=== PATIENT | female | born 1995 | race American Indian/Alaskan Native ===

== ENCOUNTER 2021-06-16 02:34 | Inpatient (IN) | payer OTHER ==
[2021-06-16] MEDS ORDERED: BUTORPHANOL 2 MG/1 ML INJ IV PRN (05:35)
[2021-06-16] MEDS ORDERED: miSOPROStol 200 MCG TAB PR PRN (05:35)
[2021-06-16] MEDS ORDERED: METHYLERGONOVINE MALEATE 0.2 MG/ML VIAL IM PRN (05:35)
[2021-06-16] MEDS ORDERED: NALOXONE 0.4 MG/1 ML INJ IV PRN (05:35)
[2021-06-16] MEDS ORDERED: ACETAMINOPHEN 325 MG TAB PO PRN ×2 (05:35→12:57)
[2021-06-16] MEDS ORDERED: OXYTOCIN 10 UNIT/1 ML INJ IM PRN (05:35)
[2021-06-16] MEDS ORDERED: CARBOPROST TROMETHAMINE 250 MCG/1 ML INJ IM PRN (05:35)
[2021-06-16] MEDS ORDERED: LOPERAMIDE 2 MG CAP PO PRN (05:35)
[2021-06-16] MEDS ORDERED: LIDOCAINE (2%) 20 MG/1 ML VIAL 20 ML MDV INFILTRATI ONE ×2 (05:35→11:34)
[2021-06-16] MEDS ORDERED: ePHEDrine SULFATE 50 MG/1 ML INJ IV PRN ×2 (05:35→09:00)
[2021-06-16] MEDS ORDERED: TERBUTALINE 1 MG/1 ML INJ SUB-Q PRN (05:35)
[2021-06-16] MEDS ORDERED: ONDANSETRON 4 MG/2 ML INJ IV PRN ×2 (05:35→12:57)
[2021-06-16] MEDS ORDERED: MINERAL OIL 30 ML ORAL LIQD PO PRN (05:35)
--- NOTE | 2021-06-16 05:35 | History and Physical Report ---
History of Present Illness Date of examination: 06/16/21 Date of admission: 06/16/2021 Chief complaint: "I had a gush around 5:30pm then I had a trickle down my leg this morning" History of present illness: EDC Confirmation: 06/19/2021 Past History : 1 Term Births: 0 Premature Births: 0 Living Children: 0 Para: 0 Mult. Births: 0 Prev : 0 Aborta: 0 Elect. Ab: 0 Spont. 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 Past Medical History: Negative Past Medical History Past Surgical History: Negative Past Surgical History Past Medical History Anesthesia Complications: negative Anemia: negative Autoimmune Disorder: negative Bleeding Disorder: negative Blood Transfusions: negative Breast Disease: negative Diabetes: negative Heart Disease: negative Hypertension: negative Hepatitis/Liver Disease: negative Kidney Disease/UTI: negative Neurologic/Epilepsy/Migraines: negative Phlebitis/Varicosities: negative Psychiatric: negative Pulmonary Disease/Asthma: negative Thyroid Disease: negative Hospitalizations: negative Surgery (Non-administrative judge): Negative Past Surgical History Abnormal PAP: negative BRENDON Exposure: negative Infertility: negative Uterine Anomaly: negative Uterine Surgery (not C/S): negative Other Gynecologic Problems: negative Social Hx: Smoking History: Patient has never smoked. Infection History Hx of STD: none HIV Risk Eval: no Hepatitis B Risk Eval: low risk Personal hx. of genital herpes: no Partner hx. of genital herpes: no Rash, Viral, or Febrile illness since last LMP? no Varicella/Chicken Pox Status: Unknown TB Risk: no Genetic History Congenital Heart Defect: Mom: no Dad: no Pavel Disease: Mom: no Dad: no Thalassemia Mom: no Dad: no Neural Tube Defect Mom: no Dad: no Down's Syndrome Mom: no Dad: no Gal-Sachs Mom: no Dad: no Sickle Cell Disease/Trait Mom: no Dad: no Hemophilia Mom: no Dad: no Muscular Dystrophy Mom: no Dad: no Cystic Fibrosis Mom: no Dad: no [place] Chorea Mom: no Dad: no Mental Retardation Mom: no Dad: no Fragile X Mom: no Dad: no Other Genetic/Chromosomal Disorder Mom: no Dad: no Child w/other defect Mom: no Dad: no Enviromental Exposures Enviromental Exposures Reviewed Xray Exposure: no Medication, drug, or alcohol use since LMP: no Chemical/Other Exposure: no Exposure to Cat Liter: no Hx of Parvovirus (Fifth Disease): no Occupational Exposure to Children: none Current Allergies: No known allergies Current Medications (including medications started today): * VITAMINS Past History Past Medical History: other (see HPI) Past Surgical History: other (see HPI) 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) Family/Genetic History: other (see HPI) Social history: other (see HPI) - Obstetrical History Expected Date of Delivery: 06/19/21 Actual Gestation: 39 Week(s) 4 Day(s) : 1 Para: 0 Hx # Term Pregnancies: 0 Number of Pregnancies: 0 Spontaneous Abortions: 0 Induced : 0 Number of Living Children: 0 Medications and Allergies Allergies Allergy/AdvReac Type Severity Reaction Status Date / Time No Known Allergies Allergy Verified 06/16/21 05:52 Home Medications Medication Instructions Recorded Confirmed Last Taken Type Vitamin 1 tab PO QDAY 06/16/21 06/16/21 06/15/21 History Review of Systems All systems: negative Genitourinary: leakage of fluid, contractions - Vital Signs Vital signs: Vital Signs Pulse BP 113 H 97/67 06/16/21 02:59 06/16/21 02:59 Temp Pulse Resp BP Pulse Ox 99 F 113 H 17 97/67 100 06/16/21 05:28 06/16/21 02:59 06/16/21 05:28 06/16/21 03:03 06/16/21 05:28 - Physical Exam Breasts: Positive: deferred Cardiovascular: Regular rate Lungs: Positive: Normal air movement Abdomen: Positive: normal appearance, soft. Negative: distention, tenderness, guarding Genitourinary (Female): Positive: normal external genitalia, normal perenium Vulva: both: normal Vagina: Positive: normal moisture Uterus: Positive: normal size, normal contour Anus/Rectum: Positive: normal perianal skin Extremities: Positive: normal - Obstetrical FHR: auscultation normal, category 1 Uterine Contraction Monitor Mode: Palpation Uterine Contraction Pattern: Irregular Uterine Tone Measurement Phase: Contraction Uterine Contraction Intensity: Moderate Results Abnormal lab results 06/16/21 Range/Units 04:00 Membranes Rupture Positive A (Negative) All other labs normal. 05/20/21:Tests: (1) Ct, Ng, Trich vag by ARLENE ([id number]) Order Note: Clinical Information: SRC:VR SRC:UR Chlamydia by ARLENE Negative Negative *1 Gonococcus by ARLENE Negative Negative *2 Trich vag by ARLENE Negative Negative *3 Tests: (2) Strep Gp B ARLENE ([id number]) ! Strep Gp B ARLENE Negative Negative *4 02/04/2021:Tests: (1) Profile I ([id number]) Order Note: Clinical Information: SRC:UR HBsAg Screen Negative Negative *1 RPR Non Reactive Non Reactive *2 Rubella Antibodies, IgG 1.38 index Immune >0.99 *3 Non-immune <0.90 Equivocal 0.90 - 0.99 Immune >0.99 ABO Grouping O *4 Rh Factor Positive *5 Please note: Prior records for this patient's ABO / Rh type are not available for additional verification. Antibody Screen Negative Negative *6 WBC 7.2 x10E3/uL 3.4-10.8 *7 RBC [L] 3.11 x10E6/uL 3.77-5.28 *8 Hemoglobin [L] 9.2 g/dL 11.1-15.9 *9 Hematocrit [L] 28.8 % 34.0-46.6 *10 MCV 93 fL 79-97 *11 MCH 29.6 pg 26.6-33.0 *12 MCHC 31.9 g/dL 31.5-35.7 *13 RDW 13.3 % 11.7-15.4 *14 Platelets 228 x10E3/uL 150-450 *15 Neutrophils 75 % Not Estab. *16 Lymphs 14 % Not Estab. *17 Monocytes 8 % Not Estab. *18 Eos 3 % Not Estab. *19 Basos 0 % Not Estab. *20 ! Immature Cells <No Reported Value> *21 Neutrophils (Absolute) 5.3 x10E3/uL 1.4-7.0 *22 Lymphs (Absolute) 1.0 x10E3/uL 0.7-3.1 *23 Monocytes(Absolute) 0.6 x10E3/uL 0.1-0.9 *24 Eos (Absolute) 0.2 x10E3/uL 0.0-0.4 *25 Baso (Absolute) 0.0 x10E3/uL 0.0-0.2 *26 ! Immature Granulocytes 0 % Not Estab. *27 ! Immature Grans (Abs) 0.0 x10E3/uL 0.0-0.1 *28 ! NRBC <No Reported Value> *29 Hematology Comments: <No Reported Value> *30 Tests: (2) HB Solu + Rflx Frac ([id number]) Hemoglobin (Hgb) Solubility [A] Positive Negative *31 Verified by repeat analysis Tests: (3) Hgb Fractionation Runnels ([id number]) ! Hgb F 0.0 % 0.0-2.0 *32 ! Hgb A [L] 54.2 % 96.4-98.8 *33 ! Hgb A2 2.6 % 1.8-3.2 *34 ! Hgb S [H] 43.2 % 0.0 *35 ! Interpretation: JAVY *36 Reflex to Hgb Solubility indicated for confirmation. Tests: (4) Hgb Solubility ([id number]) ! Hgb Solubility DUPPRG (X) *37 Duplicate procedure ordered. ! Final Interpretation: SBAS *38 Hemoglobin pattern and concentrations are consistent with sickle cell trait (heterozygous). Suggest clinical and hematologic correlation. Sickle Trait Interpretation Ranges Hgb A 50.0 - 70.0% Hgb S 30.0 - 45.0% Hgb A2 1.8 - 4.0% Tests: (5) HIV Ag/Ab with Reflex ([id number]) HIV Screen 4th Generation wRfx Non Reactive Non Reactive *39 Tests: (6) Varicella-Zoster V Ab, IgG ([id number]) ! Varicella Zoster IgG 194 index Immune >165 *40 Negative <135 Equivocal 135 - 165 Positive >165 A positive result generally indicates exposure to the pathogen or administration of specific immunoglobulins, but it is not indication of active infection or stage of disease. Tests: (7) HCV Antibody reflex to ARLENE ([id number]) ! HCV Ab <0.1 s/co ratio 0.0-0.9 *41 Tests: (8) Interpretation: ([id number]) ! Interpretation: SPRCS *42 Negative Not infected with HCV, unless recent infection is suspected or other evidence exists to indicate HCV infection. Tests: (9) Urine Culture, Routine ([id number]) Urine Culture, Routine Final report *43 Tests: (10) Result ([id number]) ! Result 1 MUG *44 Mixed urogenital henok 10,000-25,000 colony forming units per mL Assessment and Plan @39w4d ESTEFANY presents to triage with c/o water breaking around 5:30pm on 06/15/2021. POC d/w pt for admission and Pitocin augmentation. Pt verbalizes understanding and agrees to treatment plan. SVE /1 and Meconium present per Ashley permanent waver. GBS negative; Orders placed in EMR. Augment with Pitocin per protocol. Anticipate - Patient Problems (1) 39 weeks gestation of Current Visit: Yes Status: Acute (2) Rupture of membranes with meconium present Current Visit: Yes Status: Acute Plan to address problem: continuous monitoring notify provider with any changes in status limited vaginal exams
[2021-06-16] MEDS ORDERED: LACTATED RINGERS 1,000 ML IV SCH (05:45)
[2021-06-16] MEDS ORDERED: OXYTOCIN DRIP 30 UNITS/500 ML BAG IV SCH ×3 (06:00→13:00)
[2021-06-16 06:21] LABS: Hematocrit 27.1 % (30.3-42.9); Hemoglobin 9.1 gm/dl (10.1-14.3); Mean Corpuscular HGB Conc 34 % (30-34); Mean Corpuscular Volume 80 fl (79-97); Platelet Count 288 K/mm3 (140-440); Red Blood Count 3.38 M/mm3 (3.65-5.03); Red Cell Distribution Width 14.4 % (13.2-15.2)
--- NOTE | 2021-06-16 08:05 | Progress Note ---
Assessment and Plan A: 26 y.o. @ 39.4 wks, SROM this AM for mec fluid. Cervical exam: 1.5/50/-1. P: Pt to receive IV fluid bolus for epidural placement. Pitocin to be increased per protocol. Anticipate . Subjective - Subjective Date of service: 06/16/21 Principal diagnosis: IUP @ 39.4 wks, SROM for mec stained fluid. Patient reports: movement normal, contractions Objective - Vital Signs Vital Signs: Vital Signs - 12hr 06/16/21 06/16/21 06/16/21 02:59 03:03 05:28 Temperature 99.5 F 99 F Pulse Rate 113 H Respiratory 16 17 Rate Blood Pressure 97/67 Blood Pressure 97/67 [Right] O2 Sat by Pulse 100 Oximetry [ Bilateral Throughout] 06/16/21 06/16/21 06/16/21 06:22 07:19 07:20 Temperature 97.5 F L Pulse Rate 80 Respiratory 16 16 Rate Blood Pressure 83/52 Blood Pressure 83/52 [Right] O2 Sat by Pulse 100 Oximetry [ Bilateral Throughout] 06/16/21 08:02 Temperature Pulse Rate 88 Respiratory Rate Blood Pressure 82/44 Blood Pressure [Right] O2 Sat by Pulse Oximetry [ Bilateral Throughout] - Exam Breasts: deferred Cardiovascular: Regular rate Lungs: Normal air movement Abdomen: Present: normal appearance, soft Vulva: both: normal FHR: category 1 Uterine Contraction Monitor Mode: External Cervical Dilatation: 1.5 Cervical Effacement Percentage: 50 station: -1 Uterine Contraction Pattern: Regular Uterine Tone Measurement Phase: Resting Uterine Contraction Intensity: Moderate - Labs Labs: Abnormal Labs 06/16/21 06/16/21 04:00 05:06 RBC 3.38 L Hgb 9.1 L Hct 27.1 L MCH 27 L Membranes Rupture Positive A Laboratory Results - last 24 hr 06/16/21 06/16/21 06/16/21 04:00 05:06 05:06 WBC 8.6 RBC 3.38 L Hgb 9.1 L Hct 27.1 L MCV 80 MCH 27 L MCHC 34 RDW 14.4 Plt Count 288 Membranes Rupture Positive A Syphilis IgG Antibody Nonreactive Blood Type Antibody Screen 06/16/21 05:06 WBC RBC Hgb Hct MCV MCH MCHC RDW Plt Count Membranes Rupture Syphilis IgG Antibody Blood Type O POSITIVE Antibody Screen Negative
[2021-06-16] MEDS ORDERED: fentaNYL-BUPIV 2 MCG/ML-0.125% 200 MCG/100 ML BAG EPIDURAL SCH (09:00)
[2021-06-16] MEDS ORDERED: NALOXONE 2 MG/2 ML INJ IV PRN (09:00)
--- NOTE | 2021-06-16 12:01 | Progress Note ---
Assessment and Plan - Patient Problems (1) 39 weeks gestation of Current Visit: Yes Status: Acute (2) Rupture of membranes with meconium present Current Visit: Yes Status: Acute Plan to address problem: -complete/ complete/2+ after epidural placement. -MW notified and at the bedside -anticipate -NICU at the bedside due to the mec l-light mec staining noted on bedding. Subjective - Subjective Date of service: 06/16/21 (late entry. Pt seen at 1130) Principal diagnosis: IUP @ 39.4 wks, SROM for mec stained fluid. Interval history: Pt comfortable with epidural in place Patient reports: movement normal, contractions, no new complaints Objective - Vital Signs Vital Signs: Vital Signs - 12hr 06/16/21 06/16/21 06/16/21 02:59 03:03 05:28 Temperature 99.5 F 99 F Pulse Rate 113 H Respiratory 16 17 Rate Blood Pressure 97/67 Blood Pressure 97/67 [Right] O2 Sat by Pulse Oximetry O2 Sat by Pulse 100 Oximetry [ Bilateral Throughout] 06/16/21 06/16/21 06/16/21 06:22 07:19 07:20 Temperature 97.5 F L Pulse Rate 80 Respiratory 16 16 Rate Blood Pressure 83/52 Blood Pressure 83/52 [Right] O2 Sat by Pulse Oximetry O2 Sat by Pulse 100 Oximetry [ Bilateral Throughout] 06/16/21 06/16/21 06/16/21 08:02 08:08 08:59 Temperature Pulse Rate 88 82 110 H Respiratory Rate Blood Pressure 82/44 103/55 Blood Pressure [Right] O2 Sat by Pulse 98 Oximetry O2 Sat by Pulse Oximetry [ Bilateral Throughout] 06/16/21 06/16/21 06/16/21 09:03 09:04 09:05 Temperature 98.1 F Pulse Rate 88 86 Respiratory Rate Blood Pressure 97/53 Blood Pressure [Right] O2 Sat by Pulse 98 Oximetry O2 Sat by Pulse Oximetry [ Bilateral Throughout] 06/16/21 06/16/21 06/16/21 09:06 09:08 09:09 Temperature Pulse Rate 92 H 79 77 Respiratory Rate Blood Pressure 91/53 90/51 Blood Pressure [Right] O2 Sat by Pulse 100 Oximetry O2 Sat by Pulse Oximetry [ Bilateral Throughout] 06/16/21 06/16/21 06/16/21 09:13 09:14 09:19 Temperature Pulse Rate 74 67 86 Respiratory Rate Blood Pressure 97/54 Blood Pressure [Right] O2 Sat by Pulse 100 99 Oximetry O2 Sat by Pulse Oximetry [ Bilateral Throughout] 06/16/21 06/16/21 06/16/21 09:20 09:24 09:28 Temperature Pulse Rate 90 87 87 Respiratory Rate Blood Pressure 102/67 96/53 94/55 Blood Pressure [Right] O2 Sat by Pulse 98 Oximetry O2 Sat by Pulse Oximetry [ Bilateral Throughout] 06/16/21 06/16/21 06/16/21 09:29 09:34 09:39 Temperature Pulse Rate 85 95 H 82 Respiratory Rate Blood Pressure Blood Pressure [Right] O2 Sat by Pulse 100 100 98 Oximetry O2 Sat by Pulse Oximetry [ Bilateral Throughout] 06/16/21 06/16/21 06/16/21 09:44 09:45 09:49 Temperature Pulse Rate 80 77 82 Respiratory Rate Blood Pressure 93/54 Blood Pressure [Right] O2 Sat by Pulse 98 98 Oximetry O2 Sat by Pulse Oximetry [ Bilateral Throughout] 06/16/21 06/16/21 06/16/21 09:54 09:55 09:59 Temperature Pulse Rate 92 H 79 102 H Respiratory Rate Blood Pressure Blood Pressure [Right] O2 Sat by Pulse 99 94 94 Oximetry O2 Sat by Pulse Oximetry [ Bilateral Throughout] 06/16/21 06/16/21 06/16/21 10:00 10:04 10:09 Temperature Pulse Rate 90 79 81 Respiratory Rate Blood Pressure 114/56 Blood Pressure [Right] O2 Sat by Pulse 99 97 Oximetry O2 Sat by Pulse Oximetry [ Bilateral Throughout] 06/16/21 06/16/21 06/16/21 10:14 10:16 10:19 Temperature Pulse Rate 108 H 75 78 Respiratory Rate Blood Pressure 104/55 Blood Pressure [Right] O2 Sat by Pulse 88 98 Oximetry O2 Sat by Pulse Oximetry [ Bilateral Throughout] 06/16/21 06/16/21 06/16/21 10:20 10:24 10:29 Temperature Pulse Rate 75 77 73 Respiratory Rate Blood Pressure Blood Pressure [Right] O2 Sat by Pulse 90 97 98 Oximetry O2 Sat by Pulse Oximetry [ Bilateral Throughout] 06/16/21 06/16/21 06/16/21 10:31 10:34 10:39 Temperature Pulse Rate 77 79 73 Respiratory Rate Blood Pressure 95/50 Blood Pressure [Right] O2 Sat by Pulse 94 97 98 Oximetry O2 Sat by Pulse Oximetry [ Bilateral Throughout] 06/16/21 06/16/21 06/16/21 10:41 10:44 10:49 Temperature Pulse Rate 95 H 77 74 Respiratory Rate Blood Pressure 94/55 Blood Pressure [Right] O2 Sat by Pulse 91 97 100 Oximetry O2 Sat by Pulse Oximetry [ Bilateral Throughout] 06/16/21 06/16/21 06/16/21 10:52 10:54 10:59 Temperature Pulse Rate 82 80 72 Respiratory Rate Blood Pressure 88/51 Blood Pressure [Right] O2 Sat by Pulse 92 100 99 Oximetry O2 Sat by Pulse Oximetry [ Bilateral Throughout] 06/16/21 06/16/21 06/16/21 11:04 11:09 11:14 Temperature Pulse Rate 70 73 78 Respiratory Rate Blood Pressure Blood Pressure [Right] O2 Sat by Pulse 99 99 99 Oximetry O2 Sat by Pulse Oximetry [ Bilateral Throughout] 06/16/21 06/16/21 06/16/21 11:19 11:24 11:29 Temperature Pulse Rate 68 70 95 H Respiratory Rate Blood Pressure 96/54 Blood Pressure [Right] O2 Sat by Pulse 97 98 99 Oximetry O2 Sat by Pulse Oximetry [ Bilateral Throughout] 06/16/21 06/16/21 06/16/21 11:30 11:34 11:38 Temperature Pulse Rate 92 H 89 88 Respiratory Rate Blood Pressure Blood Pressure [Right] O2 Sat by Pulse 93 99 84 Oximetry O2 Sat by Pulse Oximetry [ Bilateral Throughout] 06/16/21 06/16/21 06/16/21 11:39 11:44 11:46 Temperature Pulse Rate 75 95 H 89 Respiratory Rate Blood Pressure 89/54 Blood Pressure [Right] O2 Sat by Pulse 100 98 Oximetry O2 Sat by Pulse Oximetry [ Bilateral Throughout] 06/16/21 06/16/21 06/16/21 11:49 11:51 11:54 Temperature Pulse Rate 82 97 H 102 H Respiratory Rate Blood Pressure Blood Pressure [Right] O2 Sat by Pulse 100 85 99 Oximetry O2 Sat by Pulse Oximetry [ Bilateral Throughout] - Exam FHR: category 1 Cervical Dilatation: 10 Cervical Effacement Percentage: 100 station: 2+ Uterine Contraction Pattern: Regular Uterine Tone Measurement Phase: Resting - Labs Labs: Abnormal Labs 06/16/21 06/16/21 04:00 05:06 RBC 3.38 L Hgb 9.1 L Hct 27.1 L MCH 27 L Membranes Rupture Positive A Laboratory Results - last 24 hr 06/16/21 06/16/21 06/16/21 04:00 05:06 05:06 WBC 8.6 RBC 3.38 L Hgb 9.1 L Hct 27.1 L MCV 80 MCH 27 L MCHC 34 RDW 14.4 Plt Count 288 Membranes Rupture Positive A Syphilis IgG Antibody Nonreactive Blood Type Antibody Screen 06/16/21 05:06 WBC RBC Hgb Hct MCV MCH MCHC RDW Plt Count Membranes Rupture Syphilis IgG Antibody Blood Type O POSITIVE Antibody Screen Negative
--- NOTE | 2021-06-16 12:55 | Procedure Note ---
OB Delivery Note - Delivery Date of Delivery: 06/16/21 Drill Rig Operator: OSORIO ROSAS Estimated blood loss: 200cc - Vaginal Delivery presentation: vertex Delivery position: OA Intrapartum events: meconium Delivery induction: none Delivery augmentation: pitocin Delivery monitor: external FHT, external uterine Route of delivery: Delivery placenta: spontaneous Delivery cord: nuchal cord (X 1 around arm, easily reduced after infant delivered. ), 3 umbilical vessels Episiotomy: none Delivery laceration: 2nd degree Delivery repair: vicryl Anesthesia: epidural Delivery comments: of viable female . Infant to mother's abdomen for skin to skin. Cord cut and clamped after cessation of pulse. Spontaneous delivery of placenta, intact, complete, 3 vessels noted. Perineum and vagina inspected. 2nd degree laceration noted, repaired with 3-0 Vicryl. Fundus firm, minimal bleeding noted. QBL 200ml. Apgars 8,9. Infant weight 6-13. Sponges and instruments counted X2 and correct X2. and mother left in stable condition in care of RN. - A at 1 minute: 8 at 5 minutes: 9 Gender: Female (6-13)
[2021-06-16] MEDS ORDERED: PROMETHAZINE 25 MG RECT SUPP PR PRN (12:57)
[2021-06-16] MEDS ORDERED: WITCH HAZEL/ GLYCERIN PAD TP PRN (12:57)
[2021-06-16] MEDS ORDERED: diphenhydrAMINE 25 MG CAP PO PRN (12:57)
[2021-06-16] MEDS ORDERED: BENZOCAINE/MENTHOL 20/0.5% TOP SPRAY 56 GM TP PRN (12:57)
[2021-06-16] MEDS ORDERED: PROMETHAZINE 25 MG TAB PO PRN (12:57)
[2021-06-16] MEDS ORDERED: oxyCODONE /ACETAMINOPHEN 5-325MG TAB PO PRN (12:57)
[2021-06-16] MEDS ORDERED: miSOPROStol 100 MCG TAB PR PRN (12:57)
[2021-06-16] MEDS ORDERED: MAGNESIUM HYDROXIDE (MOM) ORAL LIQD UDC PO PRN (12:57)
[2021-06-16] MEDS ORDERED: LANOLIN/ZINC/DIMETHICONE (LANSINOH) 7 GM TP PRN ×2 (12:57)
[2021-06-16] MEDS ORDERED: IBUPROFEN 600 MG TAB PO SCH (13:00)
[2021-06-16] MEDS ORDERED: ACETAMINOPHEN 500 MG TAB PO PRN (13:15)
[2021-06-16] MEDS ORDERED: miSOPROStol 200 MCG TAB PR ONE (14:00)
[2021-06-16] MEDS: DOCUSATE SODIUM 100 MG CAP PO SCH (21:46)
[2021-06-16] MEDS: IBUPROFEN 800 MG TAB PO SCH (21:50)
[2021-06-17 00:45] LABS: Hematocrit 25.8 % (30.3-42.9); Hemoglobin 8.6 gm/dl (10.1-14.3)
[2021-06-17] MEDS: IBUPROFEN 800 MG TAB PO SCH ×3 (05:39→13:00)
[2021-06-17] MEDS ORDERED: TETANUS,DIPH,PERTUSS(ACELL) VACCINE 0.5 ML SYRINGE IM ONE (06:00)
--- NOTE | 2021-06-17 07:30 | Discharge Summary ---
Providers - Providers Date of Admission: 06/16/21 05:36 Date of discharge: 06/17/21 (pt req d/c today if possible) Attending physician: OSWALDO MOORE Primary care physician: OSWALDO MOORE Hospitalization Reason for admission: rupture of membranes, IUP at term Delivery: Episiotomy: none Laceration: 2nd degree Incision: normal, dry, intact Other procedures: none complications: none Discharge diagnosis: IUP at term delivered [place] baby: female Hospital course: pt presented with SROM @ term in labor Uncomplicated vaginal delivery Pt awake No c/o voiced. VSS FF below umb Lochia small perineum slight swelling intact. H&H 06/11 No s/sx of anemia Will RX po iron and colace @ d/c Pt instructed to continue PNV QD also. Doing well s/p vag delivery P: d/c today with instructions RTO 4 weeks PP care. Pt has chosen Depo and req to start @ PP visit. Condition at discharge: Good Disposition: 01 HOME / SELF CARE / HOMELESS - Discharge Diagnoses (1) Spontaneous vaginal delivery Status: Acute Comment: RTO 4 weeks PP Care Plan - Discharge Medications Prescriptions: Docusate Sodium [Colace] 100 mg PO BID PRN #60 capsule PRN Reason: Constipation Ferrous Sulfate [Feosol 325 MG tab] 325 mg PO BID #60 tablet - Provider Discharge Summary Activity: routine, no sex for 6 weeks, no heavy lifting 4 weeks, no strenuous exercise Diet: routine Instructions: routine Additional instructions: [] Smoking cessation referral if applicable(refer to patient education folder for contact #) [] Refer to [facility] Booklet Call your doctor immediately for: * Fever > 100.5 * Heavy vaginal bleeding ( >1 pad per hour) * Severe persistent headache * Shortness of breath * Reddened, hot, painful area to leg or breast * Drainage or odor from incision. * Keep incision clean and dry at all times and follow doctor's instructions regarding bathing/showering - Follow up plan Follow up: OSWALDO MOORE MD [Primary Care Provider] - 07/17/21 (Congratulations! Please call [phone] to schedule your visit in 4 weeks. Take medications as prescribed. Continue to take vitamin everyday. Motrin/ibuprofen for cramping/pain. Call with any concerns.)
[2021-06-17] MEDS ORDERED: FERROUS SULFATE 325 MG TAB PO SCH (10:00)
[2021-06-17] MEDS ORDERED: PRENATAL VIT27-FE FUMARATE-FOLIC ACID VIT TAB PO SCH (10:00)
[2021-06-17] MEDS: DOCUSATE SODIUM 100 MG CAP PO SCH (13:00)
[2021-06-17 16:23] VITALS: BP 132/70
== END 2021-06-17 17:35 | disposition home or self-care (01) | DRG 775 ==
LOC: TRG 02:34 → APU 02:36 → OBSVTOIN 05:36 → LD 05:36 → TRG 05:36 → OB 14:00
PROVIDERS: ADMIT Obstetrics & Gynecology; ATTEND Obstetrics & Gynecology
PROC: 10E0XZZ Delivery of Products of Conception, External Approach (ICD-10-PCS; principal; 2021-06-16)
PROC: 0KQM0ZZ Repair Perineum Muscle, Open Approach (ICD-10-PCS; 2021-06-16)
PROC: 3E0234Z Introduction of Serum, Toxoid and Vaccine into Muscle, Percutaneous Approach (ICD-10-PCS; 2021-06-16)
PROC: 3E0R3BZ Introduction of Anesthetic Agent into Spinal Canal, Percutaneous Approach (ICD-10-PCS; 2021-06-16)
PROC: 00HU33Z Insertion of Infusion Device into Spinal Canal, Percutaneous Approach (ICD-10-PCS; 2021-06-16)
DX: O77.0 Labor and delivery complicated by meconium in amniotic fluid (principal); Z3A.39 39 weeks gestation of pregnancy; Z37.0 Single live birth; Z20.822 Contact with and (suspected) exposure to COVID-19; O69.81X0 Labor and delivery complicated by cord around neck, without compression, not applicable or unspecified; Z23 Encounter for immunization; O70.1 Second degree perineal laceration during delivery
CPT/HCPCS: 36415; 84112; 85014; 85018; 85027; 86592; 86850; 86900; 86901; G0378; J0595; J2405; J2590; J7120; U0003